=== PATIENT | male | born 1980 | race African-American/Black ===

== ENCOUNTER 2018-07-08 08:05 | Emergency (ER) | payer OTHER ==
[~2018-07-08] VITALS: Ht 185.4 cm; Wt 116.6 kg
[2018-07-08 08:19] VITALS: BP 148/83
[2018-07-08] MEDS ORDERED: KETOROLAC 30 MG/ML VIAL. ONE (08:38)
[2018-07-08] MEDS ORDERED: HYDR-971 PO (08:48)
[2018-07-08] MEDS ORDERED: CYCL-331 PO (08:48)
[2018-07-08] MEDS ORDERED: IBUP800T19 PO (08:48)
--- NOTE | 2018-07-08 08:48 | PHYS DOC ---
Adult General Chief Complaint Chief Complaint: LOWER BACK PAIN OR INJURY HPI HPI Patient is a 37 year old male who presents with complaining of low back pain. Patient states he has had episodes of marked low back pain intermittently for the last 2 years since last night he had a constant bilateral low back pain as a constant and sharp pain without radiation that getting force with movement and activity. Patient rated his pain CVA and denies focal neuro deficit, urine and bowel incontinence, fever and chills, abdominal pain. Patient states he lifts heavy weight at work for a while. Review of Systems Review of Systems Constitutional: Denies fever or chills [] Eyes: Denies change in visual acuity, redness, or eye pain [] HENT: Denies nasal congestion or sore throat [] Respiratory: Denies cough or shortness of breath [] Cardiovascular: No additional information not addressed in HPI [] GI: Denies abdominal pain, nausea, vomiting, bloody stools or diarrhea [] : Denies dysuria or hematuria [] Musculoskeletal: Reports back pain Integument: Denies rash or skin lesions [] Neurologic: Denies headache, focal weakness or sensory changes [] Endocrine: Denies polyuria or polydipsia [] All other systems were reviewed and found to be within normal limits, except as documented in this note. Physical Exam Physical Exam Constitutional: Well developed, well nourished, moderate distress, non-toxic appearance. [] HENT: Normocephalic, atraumatic. [] Eyes: PERRLA, EOMI, conjunctiva normal, no discharge. [] Neck: Normal range of motion, no tenderness, supple, no stridor. [] Cardiovascular:Heart rate regular rhythm, no murmur [] Lungs & Thorax: Bilateral breath sounds clear to auscultation [] Abdomen: Bowel sounds normal, soft, no tenderness, no masses, no pulsatile masses. [] Skin: Warm, dry, no erythema, no rash. [] Back: No midline tenderness, bilateral paraspinal muscle spasm, no CVA tenderness. [] Extremities: No tenderness, no cyanosis, no clubbing, ROM intact, no edema. [] Neurologic: Alert and oriented X 3, normal motor function, normal sensory function, no focal deficits noted. [] Psychologic: Affect normal, judgement normal, mood normal. [] EKG EKG [] Radiology/Procedures Radiology/Procedures [] Course & Med Decision Making Course & Med Decision Making Evaluation of patient in ER showed 37-year-old male patient with complaining of low back pain that getting worse with movement. Patient had paraspinal spasm and treated with IM Toradol and by mouth [place] and felt better. Patient instructed to apply ice on his back and follow up with his primary care physician. Dragon Disclaimer Dragon Disclaimer This electronic medical record was generated, in whole or in part, using a voice recognition dictation system. Departure Departure: Impression: Primary Impression: Acute lumbosacral myofascial strain Additional Impressions: Tobacco abuse Tobacco abuse counseling Disposition: HOME, SELF-CARE (at [id number]) Condition: IMPROVED Referrals: SHANE SAMUEL MD (PCP) Patient Instructions: Lumbosacral Strain, Smoking Cessation, Smoking Cessation , Tips For Success Additional Instructions: Apply ice on your back Follow-up with your primary care physician in 3-5 days Return to ER if not getting better Scripts Hydrocodone Bit/Acetaminophen (NORCO 5-325 TABLET) 1 Each Tablet 1 TAB PO PRN Q6HRS PRN for PAIN, #14 TAB 0 Refills Prov: VANESA ARRIAGA MD 07/08/18 Ibuprofen (IBUPROFEN) 800 Mg Tablet 1 TAB PO TID for pain, #30 TAB Prov: VANESA ARRIAGA MD 07/08/18 Cyclobenzaprine Hcl (CYCLOBENZAPRINE HCL) 10 Mg Tablet 1 TAB PO TID for pain, #30 TAB Prov: VANESA ARRIAGA MD 07/08/18 Problem Qualifiers VANESA ARRIAGA MD Jul 08, 2018 08:48
[2018-07-08] MEDS ORDERED: CYCLOBENZAPRINE 10 MG TABLET. PO ONE (09:00)
[2018-07-08] MEDS ORDERED: KETOROLAC 60 MG/2 ML VIAL. IM ONE (09:00)
[2018-07-08] MEDS ORDERED: HYDROcodone/APAP 5/325MG 1 TAB TABLET PO ONE (09:00)
== END 2018-07-08 08:58 | disposition home or self-care (01) ==
LOC: ER 08:05
DX: S39.012A Strain of muscle, fascia and tendon of lower back, initial encounter (principal); Z72.0 Tobacco use; Z71.6 Tobacco abuse counseling; X50.9XXA Other and unspecified overexertion or strenuous movements or postures, initial encounter; Y93.89 Activity, other specified; Y92.89 Other specified places as the place of occurrence of the external cause; Y99.0 Civilian activity done for income or pay
CPT/HCPCS: 99283